=== PATIENT | female | born 1990 | race Caucasian/White ===

== ENCOUNTER 2019-03-16 09:54 | Emergency (ER) | payer SELFPAY ==
[~2019-03-16] VITALS: Ht 160 cm; Wt 65.0 kg
[~2019-03-16 09:54] MED LIST: BENADRYL 50MG C50 MG OR; CEPHALEXIN500 MG OR; CIPROFLOXACN500 MG PO; FERROUS SULF325 M1 PO; IBUPROFEN600 MG PO; LORTAB 5 OR; NO HOME MEDS; PENICILLN VK500 MG OR; PRE-NATAL PO; PRENATA8 OR; PRENATAL1 TA1 PO; TYLENOL325 MG PO; ZOFRAN4 M1 OR
[2019-03-16 11:05] LABS: HEMATOCRIT 34.8 % (37.0-47.0); HEMOGLOBIN 11.3 g/dl (12.0-16.0); IMMATURE GRANULOCYTES 0.8 % (0.0-5.0); MEAN CELL VOLUME 84.3 fL CALC (80.0-100.0); MEAN CORPUSCULAR HGB 27.4 pG CALC (26.0-32.0); MEAN CORPUSCULAR HGB CONC 32.5 g/L CALC (32.0-36.0); NEUT# 16.75 thou/uL (2.00-7.15); RED BLOOD COUNT 4.13 mill/uL (4.20-5.60); RED CELL DISTRI WIDTH 13.6 % (11.5-15.5)
[2019-03-16 11:18] LABS: URINE BILIRUBIN - DIPSTICK NEGATIVE (NEGATIVE); URINE BLOOD DIPSTICK SMALL (NEGATIVE); URINE COLOR YELLOW; URINE GLUCOSE - DIPSTICK NEGATIVE (NEGATIVE); URINE KETONE NEGATIVE (NEGATIVE); URINE LEUK ESTERASE NEGATIVE (NEGATIVE); URINE NITRITE - DIPSTICK NEGATIVE (Negative); URINE PH 5.5 (4.5-8.0); URINE PROTEIN - DIPSTICK NEGATIVE (NEG-TRACE); URINE SPECIFIC GRAVITY 1.025; URINE UROBILINOGEN - DIPSTICK 0.2 E.U./dL (0.2)
[2019-03-16 11:20] LABS: URINE RBC 0-2 RBC/hpf (0-5); URINE WBC 0-2 WBC/hpf (0-5)
[2019-03-16 11:32] LABS: ANION GAP 13 (6-22 (CALC)); BUN 11 mg/dL (7-17); BUN/CREATININE RATIO 16 (12-20 (CALC)); CARBON DIOXIDE 22 mmol/l (22-30); CHLORIDE 103 mmol/l (95-108); CREATININE 0.7 mg/dL (0.5-1.0); GFR > 60 ML/MIN (>=60 (CALC)); GFR FOR AFR.AMER. > 60 ML/MIN (>=60 (CALC)); LIPASE 49 u/l (23-300); SODIUM 134 mmol/l (137-146); TOTAL PROTEIN 7.6 g/dL (6.3-8.2)
[2019-03-16 11:45] LABS: ALBUMIN 4.3 g/dL (3.2-5.0); ALKALINE PHOSPHATASE 78 u/l (38-126); BILIRUBIN, TOTAL 0.5 mg/dL (0.0-1.4); SGOT/AST 44 u/l (14-36)
[2019-03-16] MEDS ORDERED: TAM75CAP PO (11:57)
[2019-03-16] MEDS ORDERED: AMOXICILLIN875 MG PO (11:57)
[2019-03-16 12:17] VITALS: BP 103/67
== END 2019-03-16 12:20 | disposition home or self-care (01) | DRG 153 ==
LOC: ED 09:54
PROVIDERS: Family Medicine
DX: J02.0 Streptococcal pharyngitis (principal); F17.210 Nicotine dependence, cigarettes, uncomplicated

== ENCOUNTER 2019-12-19 15:01 | Emergency (ER) | payer SELFPAY ==
[~2019-12-19] VITALS: Ht 160 cm; Wt 68.0 kg
[~2019-12-19 15:01] MED LIST changes: +AMOXICILLIN875 MG PO; +TAM75CAP PO
[2019-12-19] MEDS ORDERED: CLEOCIN300 MG PO (16:08)
[2019-12-19] MEDS ORDERED: NO HOME MED (16:21)
[2019-12-19 16:23] VITALS: BP 138/68
== END 2019-12-19 16:23 | disposition home or self-care (01) | DRG 159 ==
LOC: ED 15:01
DX: K04.7 Periapical abscess without sinus (principal); K02.9 Dental caries, unspecified; F17.200 Nicotine dependence, unspecified, uncomplicated

== ENCOUNTER 2019-12-21 09:34 | Emergency (ER) | payer SELFPAY ==
[~2019-12-21] VITALS: Ht 160 cm; Wt 82.0 kg
[~2019-12-21 09:34] MED LIST changes: +CLEOCIN300 MG PO; +NO HOME MED
[2019-12-21 10:51] LABS: ALBUMIN 4.3 g/dL (3.2-5.0); ALKALINE PHOSPHATASE 51 u/l (38-126); AMYLASE 39 u/l (30-110); ANION GAP 13 (6-22 (CALC)); BILIRUBIN, TOTAL 0.4 mg/dL (0.0-1.4); BUN 9 mg/dL (7-17); BUN/CREATININE RATIO 18 (12-20 (CALC)); CARBON DIOXIDE 23 mmol/l (22-30); CHLORIDE 102 mmol/l (95-108); CREATININE 0.5 mg/dL (0.5-1.0); GFR > 60 ML/MIN (>=60 (CALC)); GFR FOR AFR.AMER. > 60 ML/MIN (>=60 (CALC)); LIPASE 43 u/l (23-300); POTASSIUM 4.1 mmol/l (3.5-5.1); SGOT/AST 28 u/l (14-36); SODIUM 133 mmol/l (137-146)
[2019-12-21 10:54] LABS: HEMATOCRIT 40.5 % (37.0-47.0); IMMATURE GRANULOCYTES 0.2 % (0.0-5.0); MEAN CELL VOLUME 86.2 fL CALC (80.0-100.0); MEAN CORPUSCULAR HGB 28.9 pG CALC (26.0-32.0); MEAN CORPUSCULAR HGB CONC 33.6 g/dL CAL (32.0-36.0); NEUT# 2.83 thou/uL (2.00-7.15); RED BLOOD COUNT 4.7 mill/uL (4.20-5.60); RED CELL DISTRI WIDTH 12.7 % (11.5-15.5)
[2019-12-21 10:56] LABS: HEMOGLOBIN 13.6 g/dl (12.0-16.0)
[2019-12-21] MEDS ORDERED: AMOXICILLIN500 MG PO (10:59)
[2019-12-21] MEDS ORDERED: ONDANSETRON4 MG PO (10:59)
[2019-12-21] MEDS ORDERED: PREVACID30 M3 PO (10:59)
[2019-12-21 11:08] VITALS: BP 118/77
== END 2019-12-21 11:13 | disposition home or self-care (01) | DRG 392 ==
LOC: ED 09:34
PROVIDERS: Emergency Medicine
DX: K29.70 Gastritis, unspecified, without bleeding (principal); F17.200 Nicotine dependence, unspecified, uncomplicated

== ENCOUNTER 2024-06-24 10:08 | Emergency (ER) | payer OTHER ==
[~2024-06-24] VITALS: Ht 160 cm; Wt 81.4 kg
[~2024-06-24 10:08] MED LIST changes: +AMOXICILLIN500 MG PO; +ONDANSETRON4 MG PO; +PREVACID30 M3 PO
[2024-06-24] MEDS ORDERED: BENZONATATE 200 MG/CAP PO ONE (10:55)
[2024-06-24] MEDS ORDERED: DOXYCYCL HYC100 M4 PO (13:21)
[2024-06-24 13:22] VITALS: BP 105/79
== END 2024-06-24 13:28 | disposition home or self-care (01) | DRG 204 ==
LOC: ED 10:08
DX: R05.9 Cough, unspecified (principal); F17.200 Nicotine dependence, unspecified, uncomplicated; Z20.822 Contact with and (suspected) exposure to COVID-19
CPT/HCPCS: J1100

== ENCOUNTER 2024-07-03 08:36 | Emergency (ER) | payer OTHER ==
[~2024-07-03] VITALS: Ht 160 cm; Wt 6577.0 kg
[~2024-07-03 08:36] MED LIST changes: +DOXYCYCL HYC100 M4 PO
[2024-07-03 08:56] VITALS: BP 114/77
[2024-07-03 09:00] VITALS: BP 116/75
[2024-07-03] MEDS ORDERED: CEPHALEXIN500 MG PO (09:13)
[2024-07-03 09:15] VITALS: BP 129/93
[2024-07-03 09:39] VITALS: BP 129/93
== END 2024-07-03 09:40 | disposition home or self-care (01) ==
LOC: ED 08:36
DX: H00.014 Hordeolum externum left upper eyelid (principal); F17.200 Nicotine dependence, unspecified, uncomplicated